=== PATIENT | female | born 1965 | race American Indian/Alaskan Native ===

== ENCOUNTER 2018-11-07 09:08 | Emergency (ER) | payer MEDICAID, OTHER ==
[2018-11-07 09:21] VITALS: BP 155/107
[2018-11-07] MEDS ORDERED: IBUPROFEN PO ONE (09:41)
[2018-11-07] MEDS ORDERED: NORCO 5/325 PO ONE (09:41)
--- NOTE | 2018-11-07 09:44 | XRay Report ---
Left fifth toe: Trauma, pain. Routine views demonstrates what appears to be a laceration of the soft tissues on the plantar surface and a nondisplaced fracture through the midportion of the distal phalanx. No foreign body noted. Mild swelling. Impression: Distal fifth digit injury.
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
== END 2018-11-07 10:27 | disposition home or self-care (01) ==
LOC: ED 09:08
DX: S92.535A Nondisplaced fracture of distal phalanx of left lesser toe(s), initial encounter for closed fracture (principal); F17.200 Nicotine dependence, unspecified, uncomplicated; F12.10 Cannabis abuse, uncomplicated; W50.0XXA Accidental hit or strike by another person, initial encounter; Y93.89 Activity, other specified; Y92.89 Other specified places as the place of occurrence of the external cause; Y99.8 Other external cause status